=== PATIENT | female | born 1990 | race African-American/Black ===

== ENCOUNTER 2020-08-20 09:10 | Outpatient (CLI) | payer BC ==
--- NOTE | 2020-08-20 10:04 | MMO ---
Bilateral MAMMO Bilat Diag [facility]. CLINICAL HISTORY: Patient is 30 years old and is seen for diagnostic exam,lump or thickening in the left breast and pain in both breasts. The patient has the following family history of breast cancer: paternal aunt, malignant (generic). The patient has no personal history of cancer. VIEWS: The views performed were: bilateral craniocaudal with tomosynthesis; bilateral mediolateral oblique with tomosynthesis; and bilateral mediolateral with tomosynthesis. FILMS COMPARED: The present examination has been compared to a prior imaging study performed at [facility] on 08/20/2020. This study has been interpreted with the assistance of computer-aided detection. MAMMOGRAM FINDINGS: There are scattered fibroglandular densities. There are no suspicious masses, suspicious calcifications, or areas of architectural distortion. There are no mammographic or sonographic abnormalities in the area of palpable concern. The patient is referred back to her clinician. Negative imaging findings should not preclude biopsy if clinical findings are suspicious. IMPRESSION: THERE ARE NO MAMMOGRAPHIC OR SONOGRAPHIC ABNORMALITIES IN THE AREA OF PALPABLE CONCERN. THE PATIENT IS REFERRED BACK TO HER CLINICIAN. NEGATIVE IMAGING FINDINGS SHOULD NOT PRECLUDE BIOPSY IF CLINICAL FINDINGS ARE SUSPICIOUS. THE RESULTS OF THIS EXAM WERE SENT TO THE PATIENT. ACR BI-RADS Category 1 - Negative MAMMOGRAPHY NOTE: 1. A negative mammogram report should not delay a biopsy if a dominant of clinically suspicious mass is present. 2. Approximately 10% to 15% of breast cancers are not detected by mammography. 3. Adenosis and dense breasts may obscure an underlying neoplasm. Reported by: JONNIE CORRALES MD Electonically Signed: [id number]
--- NOTE | 2020-08-20 10:05 | ULT ---
EXAM: US Breast Limited Lt PROVIDED CLINICAL HISTORY: Left breast palpable abnormality COMPARISON: Concurrently performed diagnostic mammogram FINDINGS: Limited sonographic interrogation was performed of the left breast in the region of palpable concern. The sonographic appearance of the breast tissue in this region is normal. IMPRESSION: No sonographic abnormality is evident in the region of clinical concern. Negative imaging findings sh ould not preclude further evaluation of a clinically suspicious finding. Patient is referred back to her clinician.
== END 2020-08-20 09:11 | disposition home or self-care (01) ==
LOC: BICMAMMO 09:10
PROVIDERS: ATTEND Student in an Organized Health Care Education/Training Program
DX: N63.20 Unspecified lump in the left breast, unspecified quadrant (principal); N64.4 Mastodynia
CPT/HCPCS: 77066; G0279

== ENCOUNTER 2021-10-06 13:57 | Emergency (ER) | payer BC ==
[2021-10-06] MEDS ORDERED: Ibuprofen 800 MG TAB ONE (16:07)
[2021-10-06] MEDS ORDERED: Acetaminophen 500 MG TAB ONE (16:07)
[2021-10-06 16:25] LABS: Bacteria/HPF 2+ HPF (None Seen); Bilirubin Negative (Negative); Blood, Urine Negative (Negative); Clarity Turbid (Clear); Glucose, Urine (Dipstick) Normal (Negative); Ketone, Urine Negative (Negative); Leukocyte 500 Leu/uL (Negative); Nitrite Negative (Negative); Protein, Urine (Dipstick) 30 mg/dL (Neg-Trace); Specific Gravity, Urine 1.028 (1.002-1.036); Squamous Epithelial 21-50 HPF (0-3); Urobilinogen Normal mg/dL (Less than 2); WBC/HPF 21-50 HPF (0-3); pH, Urine 5.5 (5.0-9.0)
[2021-10-06 16:26] LABS: Pregnancy Test - Urine (BHCG) Negative (Negative); Pregu Control Background? CLEAR/WHITE (CLR/WHITE); Pregu Control Bar Appear? YES (CONTROL BAR); Specific Gravity 1.028 (1.002-1.036)
[2021-10-07 14:57] LABS: SARS-CoV-2 PCR by NAA DETECTED (NotDetected)
== END 2021-10-06 18:10 | disposition home or self-care (01) ==
LOC: ERS 13:57
DX: U07.1 COVID-19 (principal); N10 Acute pyelonephritis; F17.210 Nicotine dependence, cigarettes, uncomplicated
CPT/HCPCS: 81003; 81015; 81025; 87086; 94760; U0003; U0005

== ENCOUNTER 2023-05-16 15:27 | Emergency (ER) | payer BC, SELFPAY ==
[2023-05-16 19:06] LABS: SARS-CoV-2 NAA Rapid Test DETECTED (NotDetected)
== END 2023-05-16 20:16 | disposition home or self-care (01) ==
LOC: ERS 15:27
DX: U07.1 COVID-19 (principal); F17.210 Nicotine dependence, cigarettes, uncomplicated
CPT/HCPCS: 71045; 87081; 87430; U0002